=== PATIENT | male | born 1990 ===

== ENCOUNTER 2017-12-28 10:51 | Outpatient (CLI) | payer OTHER | END 2017-12-28 12:06 | disposition home or self-care (01) | LOC: LAB 10:51 | DX: A64 Unspecified sexually transmitted disease (principal) ==

== ENCOUNTER 2018-12-20 14:41 | Outpatient (CLI) | payer OTHER ==
[~2018-12-20 14:41] MED LIST: CATAPRES0.1 MG PO; METHYLPHENIDATE20 MG PO
== END 2018-12-20 14:48 | disposition home or self-care (01) ==
LOC: LAB 14:41
DX: K86.1 Other chronic pancreatitis (principal)

== ENCOUNTER 2018-12-20 15:07 | Outpatient (CLI) | payer OTHER | END 2018-12-20 15:08 | disposition home or self-care (01) | LOC: SONOGRAMA 15:07 | DX: R10.9 Unspecified abdominal pain (principal) ==